=== PATIENT | male | born 1995 | race Caucasian/White ===

== ENCOUNTER → 2020-02-26 | Outpatient (CLI) | payer OTHER ==
--- NOTE | 2020-02-26 19:04 | RAD ---
EXAM: AP, lateral and lumbosacral spot views of the lumbar spine DATE: 02/26/2020 6:33 PM INDICATION: Injury and back pain COMPARISON: No Prior FINDINGS: 5 nonrib-bearing lumbar type to bodies. Vertebral body heights are preserved. Disc heights are preserved. No spondylolisthesis. No definite acute fracture. Moderate colonic stool content is seen in the right colon. IMPRESSION: 1. Within limitations of radiographic imaging, no acute fracture or subluxation. If there is persistent clinical concern for fracture or injury, CT or MRI would provide additional details. Electronically signed by: Stevan Yoder MD (02/26/2020 7:01 PM) [facility]
== END | disposition home or self-care (01) ==
LOC: RAD 16:07
PROVIDERS: ATTEND Surgery
DX: M54.5 Low back pain (principal)
CPT/HCPCS: 72100

== ENCOUNTER → 2020-03-27 | Outpatient (CLI) | payer OTHER ==
--- NOTE | 2020-03-27 13:37 | RAD ---
PROCEDURE: KNEE LEFT 2V CLINICAL INDICATION / HISTORY: Reason: LEFT KNEE PAIN, NO KNOWN INJURY, DISABILITY DETERMINATION / Spl. Instructions: / History: . TECHNIQUE: 2 views of the left knee. COMPARISON: None FINDINGS: There is no fracture, dislocation or bone destruction. There is no joint effusion or soft tissue calcification. IMPRESSION: Unremarkable left knee. Electronically signed by: Corrie Coleman MD (03/27/2020 1:34 PM) [id number]
== END | disposition home or self-care (01) ==
LOC: RAD 11:10
PROVIDERS: ATTEND Anesthesiology Pain Medicine
DX: S89.92XA Unspecified injury of left lower leg, initial encounter (principal); M54.5 Low back pain; X58.XXXA Exposure to other specified factors, initial encounter; Y93.89 Activity, other specified; Y92.89 Other specified places as the place of occurrence of the external cause; Y99.8 Other external cause status
CPT/HCPCS: 73560